=== PATIENT | male | born 1950 | race Caucasian/White ===

== ENCOUNTER 2019-04-05 06:15 | Day surgery (SDC) | payer MEDICARE, SELFPAY ==
[2019-04-05 06:43] VITALS: BP 150/88; PULSE 83; RESP 16; TEMP 36.5; O2SAT 100; BMI 25.9
[2019-04-05] MEDS: Lactated Ringers 1,000 ML 100 ML IV (06:49)
[2019-04-05] MEDS: Cefazolin 2 GM in 0.9% Normal Saline 100 ML IV (08:45)
--- NOTE | 2019-04-05 09:11 | DCINST_ITS ---
Discharge Diet: Light diet - advance as tolerated Discharge Activity: Return to Normal Activity Allergies/Adverse Reactions: Allergies No Known Allergies Allergy (Verified 04/05/19 06:42) Medications to take at Discharge Multivitamin with Minerals [Multiple Vitamin] 1 ea PO DAILY 03/28/19 Primary Care Physician: Mau Bender [Primary Care Provider] - Test Results: Test results from this visit will be discussed in further detail at your follow- up appointment, if applicable. Please Follow Up With: Felipe Mcghee MD When: in 2 weeks, please call to make an appointment.
--- NOTE | 2019-04-05 09:12 | PCM.OPRPT ---
Report of Operation Date of Procedure: 04/05/19 Pre-Operative Diagnosis: Prostate cancer patient elected radiation treatments Post-Operative Diagnosis: The same Surgery/Procedure Performed:: Transrectal ultrasound of the prostate, peritoneal placement of gold markers and the prostate for radiation treatment. Placement of a spacer organ at risk gel matrix. O AR gel Description of Surgical Findings:: 68-year-old male taken back to the operating room after smooth induction of general anesthesia he was placed supine on the table in dorsolithotomy position. The scrotum was elevated up out of the way the perineum was shaved, he then underwent prep and drape with his legs in high lithotomy. We introduced a biplanar probe into the rectum performed ultrasonography of the prostate the seminal vesicles and prostate Denonvilliers' fascia all the anatomy was identified the bladder was identified seminal vesicles were identified the apex of the prostate base. I then guided the first fiducial marker into the left base of the prostate then guided the second fiducial marker into the right base of the prostate and then guided the third fiducial marker into the apical area of the prostate. Once all treated fiducial markers were placed in the prostate bed area and the prostate. The spacer gel was then prepared in the back table per biofuels technology manager's instructions. We then used a needle with the bevel tip up under ultrasound guidance to guide the needle into the space between Denonvilliers' fascia in the prostate and the rectum. We gently injected some normal saline to identify the location there was good separation of the rectum from the prostate in this location once the needle was in proper place between the rectum and the prostate below Denonvilliers' fascia we then injected the gel spacer gel using biplanar view over the course of 15 seconds there was good separation between the prostate and the rectum after this injection of the gel. I then removed the needle. The patient was cleaned taken out of stirrups and taken back to the PACU in good condition. He will follow-up in about 2 weeks for checkup and then is can proceed with radiation therapy. Type of Anesthesia:: General Drains: none - Admit VTE Documentation VTE Present on Admission: No VTE Mechan Device Prophylaxis: SCD's
[2019-04-05 09:16] VITALS: BP 133/86; BP 150/88; PULSE 72; RESP 16; TEMP 36.5; O2SAT 96
[2019-04-05 09:30] VITALS: BP 133/81; BP 150/88; PULSE 72; RESP 16; O2SAT 97
[2019-04-05 09:45] VITALS: BP 136/78; BP 150/88; PULSE 69; RESP 16; O2SAT 97
[2019-04-05 09:54] VITALS: BP 116/82; BP 150/88; PULSE 69; RESP 16; TEMP 36.6; O2SAT 95
[2019-04-05 10:29] VITALS: BP 138/79; BP 150/88; PULSE 70; RESP 16; TEMP 36.4; O2SAT 98
== END 2019-04-05 10:36 | disposition home or self-care (01) ==
LOC: SDC 06:18 → AC 06:19
PROVIDERS: PCP Family Medicine Geriatric Medicine; Referring Provider Urology; Visit Provider Urology
PROC: (CPT 55874; principal; 2019-04-05 08:10)
DX: C61 Malignant neoplasm of prostate (principal); Z85.828 Personal history of other malignant neoplasm of skin
CPT/HCPCS: 00902; 55876; 76942; J7120; J2405

== ENCOUNTER → 2019-04-18 | Outpatient (CLI) | payer MEDICARE, SELFPAY ==
[2019-04-05 06:43] VITALS: BMI 25.9
[2019-04-18 12:20] LABS: Absolute Lymphocyte Count 1.65 X10^3/uL (0.83-4.51); Absolute Neutrophil Count 4.4 X10^3/uL (2.0-7.7); Basophil# 0.05 X10^3/uL; Basophil% 0.6 % (0-1); Eosinophil# 0.05 X10^3/uL; Eosinophils% 0.6 % (0-5); Hematocrit 45.8 % (40-54); Hemoglobin 15.3 g/dL (13.0-16.5); Lymphocyte # 1.65 X10^3/ul (4.0); Lymphocyte % 21.1 % (19-41); Mean Corp Hgb Conc 33.4 g/dL (32-36); Mean Corpuscular Hgb 29.9 pg (27.0-32.0); Mean Corpuscular Volume 89.6 fL (80-94); Mean Platelet Vol. 11.3 fl (6.2-12.0); Monocyte# 1.59 X10^3/uL; Monocyte% 20.4 % (0-10); NRBC Flagged by Analyzer 0 % (0-5); Neutrophil # 4.43 X10^3/uL (2.7-7.7); Neutrophil % 56.8 % (47-70); POSITIVE DIFFERENTIAL YES; Platelet Count 199 K/mm3 (150-450); RBC Distribution Width CV 13.1 % (11.6-14.6); RBC Distribution Width SD 43.1 fl (35.1-43.9); Red Blood Count 5.11 M/mm3 (4.6-6.2); White Blood Count 7.8 K/mm3 (4.4-11.0)
[2019-04-18 12:46] LABS: Differential Indicated SCAN CRITERIA MET
[2019-04-18 12:56] LABS: Differential Comment SCANNED
[2019-04-18 13:04] LABS: Creatinine, Serum 1.42 mg/dL (0.70-1.30); EST Glomerular Filtration Rate 53 mL/min (>60); Est Glom Filt Rate - Afr Amer 64 mL/min (>60)
== END | disposition home or self-care (01) ==
LOC: LAB 11:40
PROVIDERS: PCP Family Medicine Geriatric Medicine; Referring Provider Radiology Radiation Oncology; Visit Provider Radiology Radiation Oncology
DX: Z01.818 Encounter for other preprocedural examination (principal); C61 Malignant neoplasm of prostate
CPT/HCPCS: 36415; 82565; 84153; 85025

== ENCOUNTER → 2019-04-19 | Outpatient (CLI) | payer MEDICARE, SELFPAY ==
[2019-04-05 06:43] VITALS: BMI 25.9
--- NOTE | 2019-04-19 13:26 | CT_ITS ---
STUDY: CT PELVIS WITH CONTRAST REASON FOR EXAM: Male, 68 years old. RADIATION PLANNING FOR PROSTATE CANCER RADIATION DOSAGE (If Supplied By Facility): CTDIvol = ( 24.26 ) mGy, DLP = ( 757.99 ) mGycm TECHNIQUE: Transaxial imaging of the pelvis was performed without oral contrast. IV 100ML ISOVUE 300 was administered intravenously. Individualized dose optimization techniques were used for this CT. COMPARISON: None. FINDINGS: Normal urinary bladder. The prostate measures 3.6 cm by 4.7 cm. This causes indentation at the bladder base. Central calcific densities are seen. Metallic densities are seen within the superior aspect of the prostate. There is enlargement of the left seminal vesicle. Normal visualized small intestine. There are multiple colonic diverticula of the sigmoid colon consistent with chronic diverticulosis. There is no pelvic fluid. There is no pelvic lymphadenopathy or mass lesion. There is diffuse atherosclerotic calcification of the pelvic arteries. Small umbilical hernia containing fat. Small bilateral inguinal hernias containing fat. Normal osseous structures. CT/CT Pelvis W/CONT Therapy IMPRESSION: Prostatic hypertrophy. This causes indentation at the bladder base. Enlargement of the left seminal vesicle. Metallic density is seen within the prostate as well as central calcifications. Electronically Signed: Francois French, at 10:52 EST , Service support ,
== END | disposition home or self-care (01) ==
LOC: CT 13:24
PROVIDERS: PCP Family Medicine Geriatric Medicine; Referring Provider Radiology Radiation Oncology; Visit Provider Radiology Radiation Oncology
DX: C61 Malignant neoplasm of prostate (principal)
CPT/HCPCS: 51600; 72193; Q9967

== ENCOUNTER → 2019-09-13 | Outpatient (CLI) | payer MEDICARE, SELFPAY ==
[2019-09-13 17:34] LABS: PSA,Total - Annual Screen 4.06 ng/mL (0.00-4.00)
== END | disposition home or self-care (01) ==
LOC: LAB 16:19
PROVIDERS: PCP Family Medicine Geriatric Medicine; Referring Provider Urology; Visit Provider Urology
DX: C61 Malignant neoplasm of prostate (principal)
CPT/HCPCS: 36415; 84153; G0103

== ENCOUNTER 2020-05-01 13:56 | Outpatient (RCR) | payer MEDICARE, SELFPAY ==
[2020-05-01] MEDS: COVID-19 VACC, MRNA(PFIZER)/PF 30 MCG/0.3 ML SYRINGE IM (17:41)
[2020-05-22] MEDS: COVID-19 VACC, MRNA(PFIZER)/PF 30 MCG/0.3 ML SYRINGE IM (17:09)
== END 2020-07-28 23:59 ==
LOC: IMMUN 13:56
PROVIDERS: PCP Family Medicine Geriatric Medicine; Visit Provider Family Medicine
DX: Z23 Encounter for immunization (principal)
CPT/HCPCS: 0001A; 0002A; 91300

== ENCOUNTER → 2024-01-02 | Outpatient (CLI) | payer MEDICARE, SELFPAY ==
[2024-01-02 15:18] LABS: PSA,Total - Annual Screen 7.05 ng/mL (0.00-4.00)
== END | disposition home or self-care (01) ==
LOC: BFHLAB 11:25
PROVIDERS: PCP Nurse Practitioner Family; Referring Provider Nurse Practitioner Family; Visit Provider Nurse Practitioner Family
DX: Z12.5 Encounter for screening for malignant neoplasm of prostate (principal)
CPT/HCPCS: 36415; 84153; G0103

== ENCOUNTER → 2024-01-30 | Outpatient (CLI) | payer MEDICARE, SELFPAY ==
--- NOTE | 2024-01-30 11:00 | PET_ITS ---
EXAMINATION: PSMA-Pylarify INDICATIONS: A 73-year-old male with history of prostate carcinoma presenting for restaging examination. COMPARISON: None available. INDEX LESION SIZE SUV PROMISE SCORE INTERPRETATION Left seminal vesicle 16.9 mm 17.43 2 Fulfills quantitative criteria for viable neoplasm. TECHNIQUE: Following the intravenous administration of 8.69 mCi of PSMA-Pylarify via the left antecubital fossa, image acquisitions of the head, neck, chest, abdomen and pelvis to the level of the mid thigh at 73 minutes post-tracer distribution reveal: The examination was interpreted using the EANM (Glenda et al., Journal of Nuclear Medicine Molecular Imaging 44:1622, 2017) and PROMISE (Hermes et al., Journal of Nuclear Medicine 59:469, 2018) interpretive criteria. HEIGHT: 70 inches. WEIGHT: 175 lbs. PSMA expression score PROMISE criteria: High (3): SUV ? parotid-salivary gland, intermediate (2): SUV ? liver, low (1): > blood pool, < liver, (0): < blood pool. SUV reference values: PAROTID GLANDS SUV: 39.4 NORMAL LIVER PARENCHYMA: 9.21 BLOOD POOL: 2.2 FINDINGS: Head/Neck: Symmetric tracer concentration is noted in the right and left parotid glands. The left submandibular gland demonstrates physiologic tracer uptake. Uptake is discerned within the nasal cavity. There is no evidence of abnormal increased radiopharmaceutical concentration within the context of the cranial vault. CHEST: There is no evidence of abnormal increased radiopharmaceutical within the context of the bilateral hemithorax pulmonary parenchyma, mediastinal structures and right-left thoracic perihilum. Pertinent chest CT findings are as follows. Atherosclerotic calcification is defined in the thoracic aorta without evidence of dilatation, aneurysm formation. Coronary arterial calcification is observed. There are no parenchymal densities-nodules defined in the right and left hemithorax with quantitatively significant increased FDG uptake. Abdomen/Pelvis: Enhanced tracer uptake is noted in the region of the left seminal vesicle. The calculated maximum standard uptake value is 17.43. The PROMISE score is 2. The maximum axial diameter of the metabolic, morphologic abnormality is 16.9 mm. Physiologic tracer uptake is noted in the hepatic and splenic parenchyma, bilateral renal units, intestinal tract, and visualized urinary bladder. Pertinent abdomen and pelvis CT findings are as follows. There is atherosclerotic calcification defined in the abdominal aorta without evidence of dilatation-aneurysm formation. Abdominal and pelvic arterial calcification is observed. Colonic diverticulosis is demonstrated without evidence of diverticulitis. Calcified phlebolith formation is noted in the right lower hemipelvis. Several surgical clips are identified in the lower pelvic mesentery. Skeletal: Degenerative changes are noted in the cervical, thoracic and lumbar spine. PET/PET/CT Tumor Base -Thigh Subs IMPRESSION: 1. ABNORMAL EXAMINATION INDICATIVE OF MALIGNANT-VIABLE NEOPLASM. 2. Enhanced FDG concentration noted in the left seminal vesicle fulfills quantitative criteria for viable neoplasm. 3. No other quantitative scintigraphic abnormalities are noted. Electronic Signature Aiden Navarrete D.O. Accurate Quantification of SUVs and standardized PROMISE scores for this report are calculated using the exclusive [employer], ([place]. Patent No. [phone] [id number] [phone] [phone] [place] patent [id number] [phone] [id number] ). Standardization and correction of the FDG SUV metric exclusively available with [employer] intellectual property, allow for vendor non-specific objective quantitative sequential FDG PET-CT comparison and otherwise unobtainable optimization of the sensitivity and specificity of the examination. [email or web address] Electronically Signed: Aiden Navarrete DO at 8:37 EST ,
== END | disposition home or self-care (01) ==
PROVIDERS: PCP Nurse Practitioner Family; Referring Provider Urology; Visit Provider Urology
DX: C61 Malignant neoplasm of prostate (principal)
CPT/HCPCS: 78815; A9595

== ENCOUNTER → 2024-05-29 | Outpatient (CLI) | payer MEDICARE, SELFPAY ==
[2024-05-29 15:38] LABS: PSA,Total- Diagnostic 0.12 ng/mL (0.00-4.00)
== END | disposition home or self-care (01) ==
LOC: BFHLAB 10:58
PROVIDERS: PCP Nurse Practitioner Family; Visit Provider Nurse Practitioner
DX: C61 Malignant neoplasm of prostate (principal)
CPT/HCPCS: 36415; 84153

== ENCOUNTER → 2024-09-02 | Outpatient (CLI) | payer MEDICARE, SELFPAY ==
[2024-09-02 19:23] LABS: PSA,Total- Diagnostic 0.06 ng/mL (0.00-4.00)
== END | disposition home or self-care (01) ==
LOC: BFHLAB 13:42
PROVIDERS: PCP Nurse Practitioner Family; Visit Provider Urology
DX: C61 Malignant neoplasm of prostate (principal)
CPT/HCPCS: 36415; 84153

== ENCOUNTER 2024-11-20 12:03 | Day surgery (SDC) | payer MEDICARE, SELFPAY ==
[2024-11-20] VITALS (9 sets, daily range): BP systolic 124–133; BP diastolic 61–81; PULSE 63–78; RESP 12–16; TEMP 35.8–36.4; O2SAT 96–98; BMI 25.6
[2024-11-20] MEDS: Lactated Ringers 1,000 ML 15 ML IV (12:41)
--- NOTE | 2024-11-20 12:48 | PCM.PRE.AN2 ---
ASA Classification* ASA Classification ASA Classification: 3 Assessment & Plan Anesthesia* Anesthesia Assessment Anesthesia Assessment: Discussed sedation and/or anesthesia options, risks, benefits, and alternatives with patient/parents/legal guardian/POA. Questions invited. The patient/parents/legal guardian/POA seems to understand and agrees to proceed with anesthesia plan. Reviewed the physical assessment, medical history, allergy history and patient home medications list prior to surgery/procedure/anesthetic and documented any changes. Performed airway and anesthesia risk assessments. Anesthesia Type Anesthesia Type: General History Source History Obtained from:: Patient and Chart Anesthesia Focused Assessment* Temperature: 97.5 F Pulse Rate: 78 Blood Pressure: 130/70 Respiratory Rate: 16 Pulse Ox: 98 Oxygen Delivery Method: Room Air Airway Assessment Mouth opens: >3 cm Mallampati Score: II Labs Anesthesia Preop lab: CBC WBC, (4.4-11.0) 7.8 K/mm3 04/18/19, 11:46 RBC, (4.6-6.2) 5.11 M/mm3 04/18/19, 11:46 Hgb, (13.0-16.5) 15.3 g/dL 04/18/19, 11:46 Hct, (40-54) 45.8 % 04/18/19, 11:46 Plt Count, (150-450) 199 K/mm3 04/18/19, 11:46 CHEMISTRY Creatinine, (0.70-1.30) 1.42 mg/dL H 04/18/19, 11:46 COAG Pre-Assessment Diagnosis/Proposed Procedure Planned Operative Procedure(s): Space OAR Anesthesia History Anesthesia History - proposal analyst: Anesthesia History - proposal analyst Hx Hospitalization No 11/15/24 10:51 Any Problems With Anesthesia No 11/15/24 10:51 Cholinesterase deficiency No 11/15/24 10:51 You/Your Family Experience No 11/15/24 10:51 fever (hyperthermia) with Relationship Recent Exposure to Contagious No 11/20/24 12:35 Disease Does patient have nerve No 11/15/24 10:51 stimulator Patient instructed to have device shut off --Does patient have Pacemaker No 11/20/24 12:35 or ICD? When Was Last Pacemaker Check QUESTION #4 FULL TEXT: You/Your Family Experience fever (hyperthermia) with Anesthesia Last Oral Intake Last Oral intake: Last Oral Intake NPO since 00:00 11/20/24 12:35 Meds taken in AM with sips of Yes 11/20/24 12:35 water? Meds patient instructed to cipro 11/20/24 12:35 take am of surgery PONV PONV - proposal analyst: PONV - proposal analyst Female No 11/15/24 10:51 HX of Motion Sickness No 11/15/24 10:51 HX of N/V After Surgery No 11/15/24 10:51 Non-Smoker Yes 11/15/24 10:51 Duration of Surgery greater No 11/15/24 10:51 than 60 minutes Number of Risk Factors 1 11/15/24 10:51 PONV Score Low Risk 11/15/24 10:51 Height & Weight Height & Weight: Anesthesia: Height & Weight Height 5 ft 10 in 11/20/24 12:35 Weight: 81 kg 11/20/24 12:35 Body Mass Index (BMI) 25.6 11/20/24 12:35 Respiratory Assessment Respiratory Assessment - proposal analyst: Respiratory Tract Infection Hx - proposal analyst Hx Respiratory Tract Infection No 11/15/24 10:51 STOP Sleep Apnea STOP Sleep Apnea - proposal analyst: STOP Sleep Apnea - proposal analyst Hx Hypertension No 11/15/24 10:51 Hx Sleep Apnea No 11/15/24 10:51 CPAP BIPAP Do you snore loudly (louder No 11/15/24 10:51 than talking or can be heard Do you often feel tired/ No 11/15/24 10:51 fatigued/ sleepy during daytime? Has anyone observed you stop No 11/15/24 10:51 breathing during sleep? STOP Results Negative 11/15/24 10:51 QUESTION #5 FULL TEXT : Do you snore loudly (louder than talking or can be heard through closed doors)? Tobacco Use History Tobacco Use History - proposal analyst: Tobacco Use History - proposal analyst Tobacco Use Smoking Status Never smoker 11/15/24 10:51 Hx Tobacco Use No 11/15/24 10:51 Years Smoking Packs Smoked per Day Smoking Cessation Date was within the last 15 years Hx Smoking Cessation Date Hx Smoking Cessation Counseling Hematologic Medial History Hematologic Hx - proposal analyst: Hematologic Medical Hx - director public policy Hx of Blood Transfusion No 11/15/24 10:51 Hx of Transfusion in last 3 No 11/15/24 10:51 Months Date of Last Transfusion (if within last 3 months) Ever experience any problems No 11/15/24 10:51 with transfusion(s)? Specify any problems Hx of Preganancy in last 3 N/A 11/15/24 10:51 Months Nurse Filling Out Transfusion [facility] 11/15/24 10:51 & Questions: Date: 11/15/24 11/15/24 10:51 Time: 10:52 11/15/24 10:51 Patient unable to answer at this time (ie. confused, unrespo /Reproduction History /Reproductive History - proposal analyst: /Reproductive Hx- proposal analyst Hx Now No 11/15/24 10:51 Gestational Age (in weeks): EDC: Hx Hx Para Hx Section SAB No 11/15/24 10:51 Active Medications Active Medications: Current Medications Generic Name Dose Route Start Last Admin Trade Name Freq PRN Reason Stop Dose Admin Cefazolin Sodium 2 gm/ Sodium 110 mls @ 200 mls/hr 11/20/24 14:20 Chloride IV 11/20/24 14:52 INTRAOP ONE Lactated Ringer's 1,000 mls @ 15 mls/hr 11/20/24 12:15 11/20/24 12:41 IV 15 mls/hr .Q48H LISA Administration PFSH Medical History Wears glasses Non-smoker History of irregular heartbeat Hyperlipidemia Nocturia Basal cell carcinoma Prostate cancer Home Medications ?Medication ?Instructions ?Recorded ?Last Taken ?Type multivitamin with minerals 1 ea PO .qod 03/28/19 Unknown History atorvastatin 20 mg tablet (Lipitor) 20 mg PO QDAY 10/30/24 Unknown History ciprofloxacin HCl 500 mg tablet 500 mg PO BID 11/20/24 11/20/24 History Allergy/AdvReac Type Severity Reaction Status Date / Time No Known Allergies Allergy Verified 11/20/24 12:34 Family History Other Cancer Colon cancer Surgical History Hx of colonoscopy Social History Smoking Status: Never smoker alcohol intake: never substance use type: does not use Addt'l Information Additional Findings: > 4 METS Review of Systems (Anesthesia) ROS Narrative System reviewed and no additional complaints, except as documented. Physical Exam Const alert, oriented x3 and average body habitus Resp normal respiratory effort, normal air movement and clear to auscultation bilaterally Cardio regular rate and regular rhythm Back/Spine normal ROM Neuro oriented x3 and moves all extremities
[2024-11-20] MEDS: fentaNYL 100 MCG/2 ML Ampul IV (14:02)
[2024-11-20] MEDS: Midazolam 2 MG/2 ML Syringe IV (14:03)
[2024-11-20] MEDS: Cefazolin 1 GM/5 ML Vial 2 GM IV (14:04)
[2024-11-20] MEDS: Lidocaine 1% (5 ml sdv) 5 ML Vial IV (14:04)
--- NOTE | 2024-11-20 14:18 | OP.PCM_ITS ---
Operative Report (Standard) Operative Information Date of Procedure: 11/20/24 Pre-Operative Diagnosis: Recurrent prostate cancer Post-Operative Diagnosis: The same Surgery/Procedure Performed: Injection of spacer gel matrix between the rectum and the prostate electric organ checker: No Type of Anesthesia: General RN Documented Start/Stop Times: Operation Date: 11/20/24 14:20 Case Time Into Pre-Op 11/20/24 12:13 Out of Pre-Op 11/20/24 13:56 Anesthesia Start 11/20/24 13:59 Into Room 11/20/24 13:59 Procedure Start 11/20/24 14:11 Procedure Start Time: 14:11 Procedure Stop Time: 14:19 Select all DRAINS/GRAFTS/IMPLANTS that apply: None Estimated Blood Loss: None Specimen collected: No Description of surgery: In the preoperative area I reviewed with the patient how the procedure is done we talked about the risk of the procedure including the risk of infection, bleeding, migration of the spacer gel, the patient is planning to have radiation to the prostate he understands that the spacer gel has demonstrated benefit in reducing the risk of toxicity from the ration radiation to the rectum but there is no guarantees that this spacer gel will prevent any serious complications or toxicity to the rectum or bowels. After reviewing this with the patient and his family organ to proceed with placement of a spacer gel matrix. Patient was taken back to the operating room after smooth induction of anesthesia he was placed supine on the table. The genitals and perineum were prepped and draped in usual sterile fashion. I then introduced a biplanar ultrasound probe into the rectum and performed ultrasonography and identified the Denonvilliers' fascia the prostate mid base and apex and seminal vesicles. The spacer gel mix was then prepared on the back table per manufactures instruction. Under ultrasound guidance in the midline perineum a bevel needle down we advanced through the perineum below the prostate into the space of Denonvilliers' fascia. The fascia was very tough and the prostate was quite fixed to the rectum. This space which could be identified by ultrasound with a bright white layer between the prostate and the rectum. I then injected normal saline to identify the space further. After I confirmed that the needle was in the correct space in the mid prostate and the space of Denonvilliers' fascia between the rectum and the prostate. Then over the course of 15 seconds the gel matrix was injected slowly there was only mild separation between the prostate and the rectum. Then the injection needle was removed intact. Patient's perineum was cleaned patient was taken out of stirrups and then taken back to the PACU in good condition. Surgical Findings: Really not able to get much separation prostate fairly fixed of the rectum Complications Complications: No Admit VTE Documentation VTE Present on Admission: No VTE Mechan Device Prophylaxis: SCD's VTE Pharm Prophylaxis ordered?: No
--- NOTE | 2024-11-20 14:18 | DCINST_ITS ---
Discharge Instructions Procedure Urology Diet Discharge Diet: No restrictions Activity Discharge Activity: Return to Normal Activity and May Not Drive (while taking narcotic pain medications.) Dressing / Incision Call your doctor if you observe: Fever of 101 or Higher Follow Up Care Please Follow Up With: Felipe Mcghee MD When: Call [phone] for an appointment Test Results: Test results from this visit will be discussed in further detail at your follow- up appointment, if applicable. Discharge Plan Admission Primary Reason for Your Visit: spacer gel Attending Provider: Felipe Mcghee Primary Care Provider: Diandra Cisneros Instructions Print Language: Japanese Discharge Orders/Prescriptions Prescriptions: New ciprofloxacin HCl [Cipro] 500 mg tablet 500 mg PO BID Qty: 14 0RF Continued atorvastatin [Lipitor] 20 mg tablet 20 mg PO QDAY multivitamin with minerals 1 EACH tablet 1 ea PO .qod Discontinued ciprofloxacin HCl 500 mg tablet 500 mg PO BID Referrals / Follow Up: Felipe Mcghee MD [Med Staff - Active Staff, Urology] Diandra Cisneros, AUTOMATIC MAINTAINER-C [Primary Care Provider, Family Practice] Disposition Disposition (needs filled in before D/C Order can be placed): Home, Self Care
--- NOTE | 2024-11-20 14:29 | PCM.POST.ANE ---
Anesthesia: Postop Eval I Current Vital Signs Temperature: 96.5 F Pulse Rate: 71 Blood Pressure: 133/81 Respiratory Rate: 16 Pulse Ox: 96 Oxygen Delivery Method: Room Air Assessment Airway patent: Yes Spontaneous unlabored respirations: Yes Mental status: Asleep nausea: No Vomiting: No Anesthesia Complication: No Fluid Hydration Crystalloid volume administer (ml): 300 Total IV fluid infused: 300 Progress Note Anesthesia document: Postop Eval 1 completed: Yes
--- NOTE | 2024-11-20 15:06 | POSTOPAN2_ITS ---
Anesthesia Postop Eval I Sum Postop Eval Completion status Anesthesia document: Postop Eval 1 completed: Yes Anesthesia Postop Eval I Summary Anesthesia Postop Eval I Summary: Anesthesia Postop Eval I: Assessment Summary Airway patent Yes 11/20/24 14:30 [email or web address] Spontaneous unlabored Yes 11/20/24 14:30 [email or web address] [email or web address] respirations Mental status Asleep 11/20/24 14:30 [email or web address] nausea No 11/20/24 14:30 [email or web address] [email or web address] Vomiting No 11/20/24 14:30 [email or web address] Anesthesia Postop Eval I: Fluid Summary Crystalloid volume administer 300 11/20/24 14:30 [email or web address] (ml) Colloids volume administered ( ml) Blood Product volume administered (ml) Total IV fluid infused 300 11/20/24 14:30 [email or web address] Anesthesia Postop Eval I: Summary Notes Anesthesia Complication No 11/20/24 14:30 [email or web address] Anesthesia Complication Comment: Post-operative progress note Anesthesia: Postop Eval II Evaluation Mental status: Awake and Calm Pain Level: 1 nausea: No Vomiting: No Complications Anesthesia Complication: No
--- NOTE | 2024-11-20 15:06 | PCM.POSTANE2 ---
Anesthesia Postop Eval I Sum Postop Eval Completion status Anesthesia document: Postop Eval 1 completed: Yes Anesthesia Postop Eval I Summary Anesthesia Postop Eval I Summary: Anesthesia Postop Eval I: Assessment Summary Airway patent Yes 11/20/24 14:30 [email or web address] Spontaneous unlabored Yes 11/20/24 14:30 [email or web address] respirations Mental status Asleep 11/20/24 14:30 [email or web address] nausea No 11/20/24 14:30 [email or web address] Vomiting No 11/20/24 14:30 [email or web address] Anesthesia Postop Eval I: Fluid Summary Crystalloid volume administer 300 11/20/24 14:30 [email or web address] (ml) Colloids volume administered ( ml) Blood Product volume administered (ml) Total IV fluid infused 300 11/20/24 14:30 [email or web address] Anesthesia Postop Eval I: Summary Notes Anesthesia Complication No 11/20/24 14:30 [email or web address] Anesthesia Complication Comment: Post-operative progress note Anesthesia: Postop Eval II Evaluation Mental status: Awake and Calm Pain Level: 1 nausea: No Vomiting: No Complications Anesthesia Complication: No
== END 2024-11-20 15:37 | disposition home or self-care (01) ==
LOC: SDC 12:08 → AC 12:09
PROVIDERS: PCP Nurse Practitioner Family; Referring Provider Urology; Visit Provider Urology
PROC: (CPT 55874; principal; 2024-11-20 14:05)
DX: C61 Malignant neoplasm of prostate (principal); Z79.899 Other long term (current) drug therapy
CPT/HCPCS: 55874; 00902; C1889; J2405

== ENCOUNTER → 2024-11-27 | Outpatient (CLI) | payer MEDICARE, SELFPAY | END | disposition home or self-care (01) | PROVIDERS: PCP Nurse Practitioner Family; Referring Provider Student in an Organized Health Care Education/Training Program; Visit Provider Student in an Organized Health Care Education/Training Program | DX: C61 Malignant neoplasm of prostate (principal) | CPT/HCPCS: 72197; A9575; A4216 ==

== ENCOUNTER → 2024-12-18 | Outpatient (CLI) | payer MEDICARE, SELFPAY ==
[2024-12-18 16:41] LABS: PSA,Total - Annual Screen 0.03 ng/mL (0.02-4.00)
== END | disposition home or self-care (01) ==
LOC: MTLAB 13:13
PROVIDERS: PCP Nurse Practitioner Family; Referring Provider Urology; Visit Provider Urology
DX: Z12.5 Encounter for screening for malignant neoplasm of prostate (principal)
CPT/HCPCS: 36415; 84153; G0103